=== PATIENT | female | born 1935 | race Caucasian/White ===

== ENCOUNTER → 2019-12-12 | Outpatient (CLI) | payer OTHER ==
[~2019-12-12] MED LIST: ACETAMIN-CODE12.5 ML PO; AMIODARONE HCL400 MG PO; BIOTIN2500 MCG PO; CALCIUM500 MG PO; GLUCOSAMINE &1 EAC1 PO; MICARDIS 80 MG80 MG PO; MULTI VITAMIN1 EACH PO; NYSTATIN1 EA10 TOP; PAIN RELIEF325 MG PO; TRELEGY ELLIPT1 EACH INH; XARELTO20 MG PO
== END ==
LOC: LAB 07:56
PROVIDERS: ATTEND Internal Medicine Cardiovascular Disease
DX: Z01.812 Encounter for preprocedural laboratory examination (principal); Z11.59 Encounter for screening for other viral diseases

== ENCOUNTER 2019-12-16 10:32 | Outpatient (CLI) | payer OTHER ==
[~2019-12-16] VITALS: Ht 162.6 cm; Wt 105.2 kg
[2019-12-16 11:30] VITALS: BP 189/60
[2019-12-16 11:57] LABS: ABSOLUTE NEUTROPHILS 4.7 thou/uL (1.4-8.2); BASOPHILS 0.5 % (0.0-2.0); EOSINOPHILS 1.2 % (0.0-3.0); HEMATOCRIT 44.2 % (37.0-47.0); HEMOGLOBIN 14.5 gm/dL (12.0-15.0); LYMPHOCYTES 26.8 % (24.0-44.0); MCH 29.8 pg (26.0-34.0); MCHC 32.9 g/dL (28.0-37.0); MCV 90.7 fL (80.0-100.0); MONOCYTES 7.4 % (1.0-8.0); POLYS 64.1 % (36.0-66.0); RBC 4.87 mil/uL (4.20-5.00); RDW 15.4 % (10.5-14.5); WBC 7.3 thou/uL (4.0-11.0)
[2019-12-16 12:07] LABS: CALCIUM 8.9 mg/dL (8.5-10.1); CREATININE 1.4 mg/dL (0.6-1.0); POTASSIUM 3.8 mmol/L (3.5-5.1)
[2019-12-16 12:13] LABS: ALBUMIN 4.2 g/dL (3.4-5.0); TOTAL BILIRUBIN 0.6 mg/dL (0.2-1.0); TOTAL PROTEIN 7.3 g/dL (6.4-8.2)
[2019-12-16 12:22] LABS: APTT 29.2 Seconds (24.5-32.8); INR 1.1
[2019-12-16 12:49] LABS: PLATELET COUNT 156 thou/uL (150-400); PLATELET ESTIMATE NORMAL
--- NOTE | 2019-12-16 18:00 | NUR ---
PT TO THE UNIT POST DUAL CHAMBER PACEMAKER PLACED. ASSESSMENT CHARTED - BP ELEVATED - PATIENT GIVEN DOSE OF [id number] ORDERED. MICHEAL DIET AND FLUIDS. PT UP TO THE BSC - HAS PROBLEMS WITH INCONTINENCE. NO CO'S OF PAIN OR NAUSEA. DAUGHTER AT THE BEDSIDE. NO CO'S AT THE PRESENT TIME.
[2019-12-16 19:50] VITALS: BP 143/61
[2019-12-17 04:15] VITALS: BP 154/67
--- NOTE | 2019-12-17 07:14 | NUR ---
ALERT,ORIENTED BUT MAYBE FORGETFUL AT TIMES.UP WITH ASSIST TO THE BEDSIDE COMMODE.VOIDED.COMPLAIN OF HEADACHE THIS AM.DOCTOR WAS PAGED AND WAITING FOR CALL BACK.MONITOR SHOWS A PACED.POC CONTINUED.
[2019-12-17 08:00] VITALS: BP 157/70
[2019-12-17 09:06] VITALS: BP 157/70
--- NOTE | 2019-12-19 08:34 | P ---
[facility] [place] [address] PROCEDURE REPORT Name: TINY MARTIN [facility] [id number] Admission: 12/16/19 Attend Phys: Lenard Mcfadden MD Discharge: 12/17/19 Date of : 31 Report #: [id number] THIS REPORT FOR: cc: Lucio Schwarz MD, Steven F. MD Couchonnal, Luis F. MD ~ CC: Lenard Schwarz DATE OF SERVICE: 12/16/2019 PACEMAKER IMPLANTATION PREOPERATIVE DIAGNOSES: 1. Atrial fibrillation. 2. Sick sinus syndrome. 3. Chronic obstructive pulmonary disease. POSTOPERATIVE DIAGNOSES: 1. Atrial fibrillation. 2. Sick sinus syndrome. 3. Chronic obstructive pulmonary disease. HISTORY: The patient is an 84-year-old female who has recently had recurrent episodes of atrial fibrillation and failed propafenone therapy, switched to amiodarone therapy, but now has issues with symptomatic bradycardia. She also has a history of COPD with a stress echo in 06/2019 with no ischemia and echocardiogram on 07/11/2019 with normal LV size and no significant valvular abnormalities. She is here for a dual chamber pacemaker implantation. ANESTHESIA: The patient underwent MAC anesthesia with no anesthesia-related complications. DESCRIPTION OF PROCEDURE: The patient underwent informed consent. We discussed the details of the procedure including the risks, which include but not limited to bleeding, infection, vascular damage, cardiac perforation, and pneumothorax. She understood these risks and is willing to proceed. She was brought to EP laboratory in a fasting and sedated state, prepped and draped in a sterile fashion. She received IV antibiotics and underwent a venogram showing patency of the left axillary vein. Next, lidocaine was injected below the level of left clavicle. Incision was made, pocket was created over the prepectoral fascia. Access was obtained twice to left axillary vein using the extrathoracic approach and sheaths were positioned using the modified Seldinger technique. Next, under fluoroscopy, the ventricular lead was placed in the right ventricular apical septum and the atrial lead was placed in the right atrial appendage both with adequate pacing and sensing thresholds. The leads were sutured to the [facility] [address] [place] [address] PROCEDURE REPORT Name: TINY MARTIN Room #: [facility] Bladimir#: [id number] Admission: 12/16/19 Attend Phys: Lenard Mcfadden MD Discharge: 12/17/19 Date of : 31 Report #: [id number] prepectoral fascia using Ethibond. The device was connected. Tug test was performed. Pocket irrigated with vancomycin. Pocket was closed in 2 layers and surgical glue placed to outer skin layer. The patient awoke neurologically and hemodynamically intact. No complications and no significant bleeding. The implanted pacemaker and leads were [employer]. The generator was a [employer], MRI compatible, serial #[id number]. Atrial lead was a 5076, 45 cm, serial #[id number], with a P-wave of 2.6 millivolts, pacing impedance of 937 ohms, pacing threshold of 0.8 volts at 0.5 milliseconds. RV lead was a model #5076, 52 cm, serial #[id number]. R-wave 9.1 millivolts, pacing impedance 982 ohms and a pacing threshold of 0.8 volts at 0.5 milliseconds. The device was programmed to the DDDR 60-130 mode. CONCLUSIONS: 1. Successful dual-chamber pacemaker implantation. 2. Satisfactory atrial and ventricular pacing and sensing thresholds. <ELECTRONICALLY SIGNED> By: Lenard Mcfadden MD 12/19/19 [id number] Lenard Mcfadden MD /nt
== END 2019-12-17 12:05 | disposition home or self-care (01) ==
LOC: CATH 10:32 → 2N 16:28 → CATH 12-17 12:05
PROVIDERS: ATTEND Internal Medicine Cardiovascular Disease
DX: I49.5 Sick sinus syndrome (principal); I48.91 Unspecified atrial fibrillation; I12.9 Hypertensive chronic kidney disease with stage 1 through stage 4 chronic kidney disease, or unspecified chronic kidney disease; N18.9 Chronic kidney disease, unspecified; G47.30 Sleep apnea, unspecified; J44.9 Chronic obstructive pulmonary disease, unspecified; E04.9 Nontoxic goiter, unspecified; M19.90 Unspecified osteoarthritis, unspecified site; Z98.890 Other specified postprocedural states; Z79.899 Other long term (current) drug therapy; Z87.891 Personal history of nicotine dependence; Z88.0 Allergy status to penicillin; Z91.040 Latex allergy status
CPT/HCPCS: 10081; 62110; 62900; 70005

== ENCOUNTER → 2019-12-25 | Outpatient (CLI) | payer OTHER | LOC: SJCVC 13:13 | PROVIDERS: ATTEND Internal Medicine Cardiovascular Disease | DX: Z45.018 Encounter for adjustment and management of other part of cardiac pacemaker (principal); I48.0 Paroxysmal atrial fibrillation; I49.5 Sick sinus syndrome; I12.9 Hypertensive chronic kidney disease with stage 1 through stage 4 chronic kidney disease, or unspecified chronic kidney disease; N18.3 Chronic kidney disease, stage 3 (moderate); E03.9 Hypothyroidism, unspecified; Z79.899 Other long term (current) drug therapy; Z87.891 Personal history of nicotine dependence ==